=== PATIENT | male | born 1965 | race Caucasian/White ===

== ENCOUNTER 2020-05-23 07:16 | Outpatient (CLI) | payer OTHER ==
[2020-05-23 14:03] LABS: #Eosinphils 0.2 thou/uL (0.0-0.7); #Lymphocytes 3.2 thou/uL (1.20-3.40); #Monocytes 0.7 thou/uL (0.11-0.59); #Neutrophils 4.5 thou/uL (1.40-6.50); %Basophils 0.4 % (0.0-1.0); %Eosinophils 2.9 % (0.0-10.0); %Lymphocytes 37.1 % (21.0-51.0); %Monocytes 7.7 % (0.0-10.0); %Neutrophils 51.9 % (42.0-75.0); Hemoglobin 15.6 g/dL (14.0-18.0); Mean Corpuscular HGB CONC 34.4 g/dL (32.0-36.0); Mean Corpuscular Hemoglobin 31.2 pg (27.0-31.0); Mean Corpuscular Volume 90.9 fL (78.0-98.0); Mean Platelet Volume 9.5 fL (7.4-10.4); Platelet Count 258 thou/uL (130-400); RBC Distribution Width 12.7 % (11.5-14.5); Red Blood Cell (RBC) Count 4.98 mill/uL (4.70-6.10); White Blood Cell (WBC) Count 8.7 thou/uL (4.8-10.8)
[2020-05-23 14:50] LABS: ALT (SGPT) 46 U/L (8-55); AST (SGOT) 27 U/L (5-34); Albumin 4.4 g/dL (3.5-5.0); Alkaline Phosphatase 87 U/L (40-110); Anion Gap 13 mmol/L (10-20); BUN (Urea Nitrogen) 16 mg/dL (8.4-25.7); Bilirubin, Total 0.5 mg/dL (0.2-1.2); Calc. Creatinine Clearance 0 mL/min (70-130); Calcium 8.8 mg/dL (7.8-10.44); Carbon Dioxide 25 mmol/L (22-29); Chloride 106 mmol/L (98-107); Estimated GFR-MDRD 78; Globulin 2.9 g/dL (2.4-3.5); Glucose 95 mg/dL (70-105); Potassium 4.9 mmol/L (3.5-5.1); Protein, Total 7.3 g/dL (6.0-8.3); Sodium 139 mmol/L (136-145)
[2020-05-24 15:21] LABS: SARS-CoV-2 MS2 Positive; SARS-CoV-2 N Gene Negative; SARS-CoV-2 S Gene Negative; SARS-CoV-2 by NAA Not Detected (NotDetected); SARS-CoV-2 orf1ab Negative
== END 2020-05-23 07:17 | disposition home or self-care (01) ==
LOC: LABBT 07:16
PROVIDERS: ATTEND Specialist
DX: Z01.812 Encounter for preprocedural laboratory examination (principal); Z20.828 Contact with and (suspected) exposure to other viral communicable diseases; K80.20 Calculus of gallbladder without cholecystitis without obstruction
CPT/HCPCS: 80053; 85025; 87635; U0003

== ENCOUNTER 2020-05-28 10:00 | Day surgery (SDC) | payer OTHER ==
[2020-05-26 13:37] VITALS: BMI 38.6
--- NOTE | 2020-05-26 17:26 | EKG ---
Test Reason : Blood Pressure : / mmHG Vent. Rate : 073 BPM Atrial Rate : 073 BPM P-R Int : 164 ms QRS Dur : 086 ms QT Int : 366 ms P-R-T Axes : 060 091 050 degrees QTc Int : 403 ms Normal sinus rhythm Rightward axis Borderline ECG Confirmed by DR. Sarah BARR ([id number]) on 05/26/2020 5:25:45 PM Referred By: SANDHYA Confirmed By:DR. Sarah BARR
--- NOTE | 2020-05-27 08:21 | HP ---
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 He has been having symptoms for several months. He presented to the emergency room and had a gallbladder ultrasound noting gallstones, normal bile duct caliber, normal liver function tests, and CBC. He is morbidly obese with 39 BMI, 291 pounds, 6 feet. He continued to have episodes of pain. Plan is for laparoscopic video cholecystectomy. He understands risks and benefits, and consents. ALLERGIES: NONE. TOBACCO: None. ALCOHOL: Rarely. MEDICATIONS: None routinely. PAST SURGICAL HISTORY: Childhood surgery. He does not know what for. PAST MEDICAL HISTORY: Noncontributory. FAMILY HISTORY: Noncontributory. REVIEW OF SYSTEMS: Ten-point noncontributory. Cardiology symptoms absent. PHYSICAL EXAMINATION: VITAL SIGNS: Weight 291 pounds, height 6 feet, 39 BMI, blood pressure 138/87, heart rate 91, temperature 98.2 degrees. HEAD, EARS, EYES, NOSE AND THROAT: Unremarkable. LUNGS: Clear to auscultation. CARDIAC: Regular rhythm without murmur or gallop. ABDOMEN: Soft, nontender, obese, protuberant. EXTREMITIES: Unremarkable. No ankle edema. NEUROLOGIC: Intact. ASSESSMENT AND PLAN: Symptomatic cholelithiasis. Recommend laparoscopic video cholecystectomy. Risks of infection, bleeding, visceral and biliary injury discussed. Questions answered. Job ID: [id number]
[2020-05-28] MEDS ORDERED: Acetaminophen 500 MG TAB ONE (10:20)
[2020-05-28] MEDS ORDERED: Ketorolac Tromethamine 30 MG/ML VIAL ONE (10:20)
[2020-05-28] MEDS ORDERED: Bupivacaine HCl 0.5%/Epinephrine 1:200,000/PF 30 ml Vial ONE (10:39)
[2020-05-28] MEDS ORDERED: Fentanyl 100 MCG/2 ML VIAL ONE ×2 (10:40→12:45)
[2020-05-28] MEDS ORDERED: SUGAMMADEX SODIUM 500 MG/5 ML VIAL ONE (10:49)
[2020-05-28] MEDS ORDERED: Lidocaine 1% PF 5 ML VIAL ONE (11:00)
[2020-05-28] MEDS ORDERED: Rocuronium Bromide 10 MG/ML (10ML VIAL) ONE (11:00)
[2020-05-28] MEDS ORDERED: Ondansetron PF 4 MG/2 ML Vial ONE (11:00)
[2020-05-28] MEDS ORDERED: Dexamethasone 20 MG/5 ML VIAL ONE (11:00)
[2020-05-28] MEDS ORDERED: PROPOFOL 200 MG/20 ML VIAL ONE (11:00)
[2020-05-28] MEDS ORDERED: Glycopyrrolate 0.2 MG/ML 5 ML SYRINGE ONE (11:00)
--- NOTE | 2020-05-28 16:09 | OP ---
DATE OF PROCEDURE: 05/28/2020 PREOPERATIVE DIAGNOSES: Chronic cholecystitis, cholelithiasis, acute cholecystitis. POSTOPERATIVE DIAGNOSES: Chronic cholecystitis, cholelithiasis, acute cholecystitis. PROCEDURE PERFORMED: Laparoscopic video cholecystectomy. ANESTHESIA: General, local 0.5% Marcaine with epinephrine 30 mL. DESCRIPTION OF PROCEDURE: The patient was taken to the operating room, where under general anesthesia, abdomen was prepared with ChloraPrep and draped in routine fashion. Local anesthetic infiltrated in the skin and subcutaneous tissue about each port site. Infraumbilical incision made. Pneumoperitoneum to 15 mmHg was obtained with a Veress needle, replaced with a 5 port and laparoscope inserted. Right subxiphoid incision was made and 11 port placed, right subcostal incision made at midclavicular and anterior axillary line. The 5 port was placed. The fundus of the gallbladder was thickened wall, inflamed, edematous, grasped at the cephalad. Liver appeared to be firm, possibly fatty infiltration, but not cirrhotic. Infundibulum, inflammatory attachments, dissected free, grasped, reflected laterally. Cystic artery and duct dissected free. Critical view obtained. Cystic artery and duct doubly clipped proximally, divided, gallbladder dissected free, obtaining good hemostasis prior to division of final peritoneal attachments. Gallbladder and stones and contents removed and submitted to pathology. Good hemostasis ensured with cautery. Irrigant and pneumoperitoneum evacuated. All instruments removed. All skin incisions were approximated with subdermal 4-0 Monocryl and Kensett glue applied. Job ID: [id number]
== END 2020-05-28 14:20 | disposition home or self-care (01) ==
LOC: SDC 10:00
PROVIDERS: ATTEND Specialist
PROC: 0FT44ZZ Resection of Gallbladder, Percutaneous Endoscopic Approach (ICD-10-PCS; principal; 2020-05-28)
DX: K80.12 Calculus of gallbladder with acute and chronic cholecystitis without obstruction (principal)
CPT/HCPCS: 88304; 93005; 93010; J0690; J1100; J1885; J2405; J2704; J3010

== ENCOUNTER 2020-06-05 14:53 | Inpatient (IN) | payer OTHER ==
[2020-06-05] MEDS ORDERED: GoLYTELY 4,000 ml Bottle PO SCH (16:00)
[2020-06-05] MEDS ORDERED: Morphine 4 MG/ML VIAL SLOW IVP PRN (16:03)
[2020-06-05 18:16] VITALS: BMI 32.5
[2020-06-05] MEDS: Ketorolac Tromethamine 30 MG/ML VIAL IVP SCH ×2 (18:44→21:08)
[2020-06-05] MEDS: Piperacillin/Tazobactam 4.5 GM in Sodium Chloride 0.9% 100 ML IVPB SCH (18:45)
[2020-06-05] MEDS: Sodium Chloride 0.9% 1,000 ML IV SCH (18:48)
[2020-06-05] MEDS: HYDROcodone/Acetaminophen 5/325 mg Tablet PO PRN (18:53)
[2020-06-05] MEDS ORDERED: Enoxaparin Sodium 40 MG/0.4 ML SYRINGE SC SCH (21:00)
[2020-06-05] MEDS: Divalproex Sodium DR 500 MG TAB PO SCH (21:09)
[2020-06-05] MEDS: traMADol HCl 50 MG TAB PO PRN (21:09)
--- NOTE | 2020-06-05 22:03 | HP ---
HISTORY OF PRESENT ILLNESS: Hao Forbes is a 55-year-old male, 8 days status post laparoscopic cholecystectomy. His operation went well. The patient initially did well, first day and half or two postoperatively, but then began having right abdominal pain. He denies experiencing any fever, nausea, vomiting, or diarrhea. He has never had a colonoscopy. There is no family history of colon problems. He complains of pain in his right abdomen, regionally in right lower quadrant. It hurts when he takes a deep breath or coughs or sneeze. Considering this, he was seen in my office today. Laboratories obtained revealing a white count of 9 and hemoglobin of 14.2. His comprehensive metabolic profile was normal. Minimal liver function test changes. He did have a COVID negative test, 05/23/2020. Hepatitis serology negative. The patient's pathology revealed cholecystitis, cholelithiasis, cholesterolosis. The patient had a CAT scan of the abdomen and pelvis obtained, revealing right colitis extending from the cecum, area to the hepatic flexure. This is where he describes his pain. The patient's pain is so severe that Ultram has been insufficient. The patient is admitted now for evaluation. I have talked to Dr. Azar Elias. Plan is for GoLYTELY bowel prep and colonoscopy. ALLERGIES: NONE. TOBACCO: None. ALCOHOL: Rarely. MEDICATIONS: None routinely. PAST SURGICAL HISTORY: Childhood surgery, does not know what for. Laparoscopic cholecystectomy recently. PAST MEDICAL HISTORY: Noncontributory. REVIEW OF SYSTEMS: Noncontributory. Cardiology symptoms negative. PHYSICAL EXAMINATION: VITAL SIGNS: 288 pounds, 6 feet tall, 136/85, 106, heart rate 97.3 degrees. HEAD, EARS EYES, NOSE AND THROAT: Unremarkable. LUNGS: Clear to auscultation. CARDIAC: Regular rate and rhythm without murmur or gallop. ABDOMEN: Soft. Laparoscopic wounds well healed. No evidence of infection. He has mild tenderness in his right abdomen and areas described of pain. EXTREMITIES: Unremarkable. ASSESSMENT AND PLAN: Colitis. Admitted to the hospital because he cannot manage this as an outpatient. We will plan intravenous fluids and antibiotics. Consultation, Dr. Azar Elias. Job ID: [id number]
[2020-06-06] MEDS: Piperacillin/Tazobactam 4.5 GM in Sodium Chloride 0.9% 100 ML IVPB SCH ×5 (00:22→17:01)
[2020-06-06] MEDS: Sodium Chloride 0.9% 1,000 ML IV SCH ×3 (00:34→13:15)
--- NOTE | 2020-06-06 00:56 | CON ---
DATE OF CONSULTATION: 06/05/2020 CHIEF COMPLAINT: Abdominal pain. HISTORY OF PRESENT ILLNESS: Mr. Forbes is a 55-year-old man, who originally presented to the emergency room back in January with right upper quadrant pain. He had an ultrasound at that time that showed gallstones and a CT scan that showed fatty liver. He ultimately returned for cholecystectomy on 05/28/2020, by Dr. Whitten and following the surgery he just had some mild soreness around the incision sites and was released home. The next night, which was the evening of May 29, he developed a more sharp right lower quadrant to right mid abdominal pain that primarily occurred with deep breath and lying on his right side. He took tramadol, a couple of tablets several times per day to control the pain over the next few days and today on 06/05/2020, underwent CT scan of the abdomen and pelvis to further evaluate the pain. This showed some minimal fluid in the gallbladder fossa and this time he was noted to have thickening of the colon wall from the hepatic flexure through the mid-transverse colon. He was admitted to the hospital for further care and GI was consulted to evaluate. PAST MEDICAL HISTORY: 1. Earlier in the year, he developed headaches and was treated with blood pressure medicine for a period of time. The headaches resolved and he quit taking the blood pressure medicine a couple of months ago. 2. Fatty liver was noted by CT scan back in January. PAST SURGICAL HISTORY: Cholecystectomy on 05/28/2020. FAMILY HISTORY: Negative for GI malignancy. His father had lung cancer. SOCIAL HISTORY: He dips half a can of tobacco a day. No smoking. Occasional alcohol around once a month. Remote use of cocaine years ago but nothing recently. ALLERGIES: NO KNOWN DRUG ALLERGIES. CURRENT INPATIENT MEDICATIONS: Include: 1. Amlodipine. 2. Depakote. 3. Enoxaparin. 4. Hydrocodone as needed. 5. Toradol. 6. Zosyn. 7. Tramadol as needed. 8. He has started a bowel prep. REVIEW OF SYSTEMS: Negative x10 systems reviewed except as stated in the history of present illness. PHYSICAL EXAMINATION: VITAL SIGNS: Temperature is 98.3, pulse 67, blood pressure 119/80. GENERAL: He is in no acute distress. Alert and oriented x3. HEENT: Eyes have no scleral icterus. Oropharynx is clear without lesions. NECK: No cervical or supraclavicular lymphadenopathy. LUNGS: Clear to auscultation bilaterally. HEART: Regular rate and rhythm without murmur. ABDOMEN: Soft. Minimal tenderness in the right abdomen without guarding. Bowel sounds are present. EXTREMITIES: No lower extremity edema. Cranial nerves are grossly intact. LABORATORY DATA: White blood cell count 9.9, hemoglobin 14.2, platelets 319. INR 1.0, creatinine 0.97, bilirubin 0.5, AST 36, ALT 82, alkaline phosphatase 116, albumin 4.3. IMPRESSION: 1. Right lower quadrant to right mid abdominal pain. This is worse with deep breath and when he turns his body in certain position. He is nontender to palpation. This could still be more of just postoperative pain that may take time to resolve, but the findings on CT scan with the thickening of the colon do correspond to the right colon, and he could have an inflammatory colitis or ischemic colitis or infectious colitis. He has no diarrhea or ongoing pain with this. I would doubt that he has an infectious or inflammatory colitis without corresponding diarrhea or blood in the stool. Ischemic colitis is still a consideration. With thickening of the colon by CT, we still need to rule out a neoplastic process as well. It could be that the colon thickening is from nondistention, but there were some also inflammatory changes noted. RECOMMENDATIONS: He will receive a bowel prep this evening for colonoscopy tomorrow. Job ID: [id number]
[2020-06-06] MEDS: Ketorolac Tromethamine 30 MG/ML VIAL IVP SCH ×3 (05:09→17:06)
[2020-06-06] MEDS: Divalproex Sodium DR 500 MG TAB PO SCH (08:33)
[2020-06-06] MEDS ORDERED: Amlodipine 10 MG TAB PO SCH (09:00)
[2020-06-06 09:02] LABS: SARS-CoV-2 NAA Rapid Test Not Detected (NotDetected)
[2020-06-06] MEDS ORDERED: PROPOFOL 200 MG/20 ML VIAL ONE (10:14)
--- NOTE | 2020-06-06 12:39 | OP ---
DATE OF PROCEDURE: 06/06/2020 PROCEDURE PERFORMED: Colonoscopy with biopsy. PREOPERATIVE DIAGNOSES: Right lower quadrant pain and colon thickening by CT scan in the right colon. DESCRIPTION OF PROCEDURE: Informed consent was obtained from the patient. He was sedated with total intravenous anesthesia. The rectal exam was performed and was normal. The preparation quality was good. The colonoscope was advanced to the terminal ileum without difficulty. The mucosa of the terminal ileum was normal. The ileocecal valve and appendiceal orifice were clearly identified. There was slight granularity to the mucosa in the cecum with a few 1-mm white plaques scattered in the cecum. Biopsies were obtained to evaluate for chronic inflammatory changes. These were very unimpressive overall. His ascending colon, transverse colon, descending colon, and sigmoid colon all appeared normal. Biopsies were taken from these segments. The rectum had again a few scattered 1-mm white plaques, but no ulcerations or granularity in this area. Biopsies were obtained in the rectum as well. Retroflexed views in the rectum were normal. IMPRESSION: 1. There were few 1-mm white plaques scattered in the cecum and the rectum. These are not really suggestive of pseudomembranous colitis. A mild acute inflammatory process might be present, but certainly this is extremely mild and would not explain his significant abdominal pain. Biopsies were obtained to rule out mild chronic ulcerative colitis. These changes were only found in the cecum and rectum. 2. Otherwise normal colonoscopy to the terminal ileum. RECOMMENDATIONS: 1. Await histopathology. 2. Advance diet. 3. Repeat colonoscopy in 10 years for colon cancer screening. Job ID: [id number]
[2020-06-06] MEDS: HYDROcodone/Acetaminophen 5/325 mg Tablet PO PRN (13:20)
[2020-06-06 15:30] VITALS: TEMP 97.8
[2020-06-06 15:31] VITALS: BP 124/84
--- NOTE | 2020-06-06 16:15 | NM ---
Radionucleotide hepatobiliary scan HISTORY: Abdominal pain. Recent cholecystectomy. Evaluate for leak. FINDINGS: Early images show physiologic uptake of radiotracer throughout the hepatic parenchyma. Upta ke first seen within the small bowel at 8 minutes. Reflux to the stomach is visible at 16 minutes. No abnormal areas of radiotracer uptake are evident near the gallbladder fossa. IMPRESSION : No evidence of biliary leak.
[2020-06-06] MEDS: traMADol HCl 50 MG TAB PO PRN (17:05)
--- NOTE | 2020-06-07 03:08 | DIS ---
DATE OF ADMISSION: 06/05/2020 DATE OF DISCHARGE: 06/06/2020 DISCHARGE DIAGNOSIS: Abdominal pain 8 days post cholecystectomy. CAT scan suggested right colon hepatic flexure, transverse colon thickening. Colonoscopy, after bowel prep seen by Dr. Azar Elias, was normal. Biopsies obtained. Nothing found to account for his disease. CAT scan of the abdomen and pelvis obtained prior to admission revealed some colon thickening of the area was described, but no suggestion of postoperative fluid. Nonetheless, because of his pain, he had a HIDA scan, that demonstrated absence of any bile leak. The patient is feeling somewhat better. He has [place] for pain. He has been discharged home at this time with followup in my office 2 to 3 weeks. Diet and activity as tolerated. [id number] Tylenol, Advil as needed. He has hydrocodone I prescribed from the office as needed. If needed, he will fill that. Expect his pain to resolve with time. Job ID: [id number]
--- NOTE | 2020-06-11 00:48 | PQF ---
CLINICAL DOCUMENTATION CLARIFICATION FORM: Dear : Azar Elias MD Date / Time: 06/11/2020 Please exercise your independent, professional judgment in responding to the clarification form. Clinical indicators are provided on the bottom of this form for your review Final Diagnosis on the Pathology report: Biopsy of cecum, ascending, rectosigmoid active colitis Please check appropriate box(es): [ x ] Agree w the pathology finding of: _acute colitis, not chronic colitis (not chronic ulcerative colitis or IBD) [ ] Other explanation of pathology findings (please specify) [ ] Other diagnosis (Please specify if any) [ ] Unable to determine Physician Signature: Date/Time: For continuity of documentation, please document condition throughout progress notes and discharge summary. Thank You. To be completed by CDI/Coding staff for physician review: Present Clinical Indicators - Signs / Symptoms / Labs Results and Location in Medical Record [x] Large intestine, cecum, endoscopic biopsy Active colitis Path surgical specimen on 06/06 [x] Large intestine, ascending, endoscopic biopsy Focal mild active colitis Path surgical specimen on 06/06 [x] Large intestine, rectosigmoid, endoscopic biopsy Focal mild active colitis Path surgical specimen on 06/06 [x] The patient had a CAT sacn of the abdomen & pelvis obtained revealing right colitis extending from the cecum H&P on 06/05 Present Risk Factors Results and Location in Medical Record [x] Right abdominal pain H&P on 06/05 [ ] Present Treatments Results and Location in Medical Record [x] Colonoscopy with biopsy OP note on 06/06 [ ] [ ] [ ] CDS/Kiln Operator Signature: AAS Phone #: Date/Time: 06/11/2020 This is a permanent part of the Medical Record [facility]
== END 2020-06-06 18:20 | disposition home or self-care (01) | DRG 392 ==
LOC: SURG A 15:09
PROVIDERS: ADMIT Specialist; ATTEND Specialist
PROC: 0DBK8ZX Excision of Ascending Colon, Via Natural or Artificial Opening Endoscopic, Diagnostic (ICD-10-PCS; principal; 2020-06-06)
PROC: 0DBL8ZX Excision of Transverse Colon, Via Natural or Artificial Opening Endoscopic, Diagnostic (ICD-10-PCS; 2020-06-06)
PROC: 0DBN8ZX Excision of Sigmoid Colon, Via Natural or Artificial Opening Endoscopic, Diagnostic (ICD-10-PCS; 2020-06-06)
PROC: 0DBM8ZX Excision of Descending Colon, Via Natural or Artificial Opening Endoscopic, Diagnostic (ICD-10-PCS; 2020-06-06)
PROC: 0DBP8ZX Excision of Rectum, Via Natural or Artificial Opening Endoscopic, Diagnostic (ICD-10-PCS; 2020-06-06)
PROC: 0DBH8ZX Excision of Cecum, Via Natural or Artificial Opening Endoscopic, Diagnostic (ICD-10-PCS; 2020-06-06)
DX: K52.9 Noninfective gastroenteritis and colitis, unspecified (principal); G89.18 Other acute postprocedural pain; Z20.828 Contact with and (suspected) exposure to other viral communicable diseases; Z90.49 Acquired absence of other specified parts of digestive tract
CPT/HCPCS: 78226; 88305; A9537; J1650; J1885; J2543; J2704; J3490; U0002

== ENCOUNTER 2023-10-22 07:08 | Emergency (ER) | payer OTHER ==
[2023-10-22 08:12] LABS: #Eosinphils 0.1 thou/uL (0.0-0.7); #Monocytes 0.8 thou/uL (0.11-0.59); #Neutrophils 4.6 thou/uL (1.40-6.50); %Basophils 0.5 % (0.0-1.0); %Eosinophils 1.6 % (0.0-10.0); %Lymphocytes 30.6 % (21.0-51.0); %Monocytes 9.9 % (0.0-10.0); %Neutrophils 57.3 % (42.0-75.0); Hematocrit 42.4 % (42.0-52.0); Hemoglobin 13.9 g/dL (14.0-18.0); Mean Corpuscular HGB CONC 32.8 g/dL (32.0-36.0); Mean Corpuscular Hemoglobin 31.9 pg (27.0-31.0); Mean Corpuscular Volume 97.2 fl (78.0-98.0); Mean Platelet Volume 10.6 fL (7.4-10.4); Platelet Count 232 10x3/uL (130-400); Red Blood Cell (RBC) Count 4.36 mill/uL (4.70-6.10)
[2023-10-22 08:29] LABS: ALT (SGPT) 78 U/L (8-55); AST (SGOT) 41 U/L (5-34); Albumin 4.4 g/dL (3.5-5.0); Alkaline Phosphatase 72 U/L (40-110); Anion Gap 14 mmol/L (10-20); BUN (Urea Nitrogen) 25 mg/dL (8.4-25.7); Bilirubin, Total 0.5 mg/dL (0.2-1.2); Calc. Creatinine Clearance 0 mL/min (70-130); Calcium 9.4 mg/dL (7.8-10.44); Carbon Dioxide 25 mmol/L (22-29); Chloride 104 mmol/L (98-107); Estimated GFR 74; Globulin 3.2 g/dL (2.4-3.5); Glucose 92 mg/dL (70-105); Protein, Total 7.6 g/dL (6.0-8.3); Sodium 139 mmol/L (136-145)
[2023-10-22 08:33] LABS: Troponin I 0.017 ng/mL (< 0.028)
== END 2023-10-22 10:11 | disposition home or self-care (01) ==
LOC: ERS 07:08
DX: R00.2 Palpitations (principal); I10 Essential (primary) hypertension; Z75.3 Unavailability and inaccessibility of health-care facilities; Z87.891 Personal history of nicotine dependence; Z79.899 Other long term (current) drug therapy
CPT/HCPCS: 36415; 71045; 80053; 83880; 84484; 85025; 85379; 93005